=== PATIENT | female | born 1975 | race Caucasian/White ===

== ENCOUNTER 2017-09-14 11:27 | Outpatient (CLI) | payer OTHER | END 2017-09-16 17:00 | disposition home or self-care (01) | LOC: TOM 11:27 | DX: N20.0 Calculus of kidney (principal) ==

== ENCOUNTER → 2017-10-29 | Outpatient (CLI) | payer OTHER | END | disposition home or self-care (01) | LOC: NUCLEAR 13:00 | DX: N20.0 Calculus of kidney (principal) | CPT/HCPCS: 78708; A9539; J1940 ==